=== PATIENT | female | born 2000 | race Caucasian/White ===

== ENCOUNTER → 2020-10-18 | Outpatient (CLI) | payer OTHER | END | disposition home or self-care (01) | LOC: SONOGRAMA 13:22 | PROVIDERS: ATTEND Surgery | DX: D24.1 Benign neoplasm of right breast (principal); N60.11 Diffuse cystic mastopathy of right breast; N60.12 Diffuse cystic mastopathy of left breast; R92.0 Mammographic microcalcification found on diagnostic imaging of breast ==

== ENCOUNTER 2020-11-08 06:18 | Day surgery (SDC) | payer OTHER | END 2020-11-08 14:40 | disposition home or self-care (01) | LOC: CIR.AMB 06:18 | PROVIDERS: ATTEND Surgery | DX: D24.1 Benign neoplasm of right breast (principal); Z20.822 Contact with and (suspected) exposure to COVID-19 ==